=== PATIENT | female | born 1980 | race Caucasian/White ===

== ENCOUNTER 2018-01-31 06:28 | Day surgery (SDC) | payer OTHER ==
[2018-01-31] MEDS ORDERED: SILVER NITRATE TP ONE (07:30)
[2018-01-31] MEDS ORDERED: METHERGINE IM ONE (07:31)
--- NOTE | 2018-01-31 08:15 | Short Stay Summary ---
Short Stay Documentation Date of service: 01/31/18 Narrative H&P: Pt is a 37yo HF LMP 10/24/17 had a pelvic u/s 01/27/18 showing an IUFD @ 11 weeks. She denies vaginal bleeding, and Medical options were discussed. She prefers surgery, so is scheduled for a D&C. - History Principal diagnosis: Incomplete H&P: obtained from office Past Medical History: No medical history Past Surgical History: No surgical history Social history: no significant social history, - Allergies and Medications Current Medications: Allergies No Known Allergies Allergy (Unverified 05/31/17 16:23) Home Medications Medication Instructions Recorded Confirmed Last Taken Type Doxycycline Hyclate [Doxycycline 100 mg PO Q12HR #14 tab 05/31/17 Unknown Rx Hyclate TAB] Ibuprofen [Motrin] 800 mg PO Q8HR PRN #30 tablet 05/31/17 Unknown Rx Methylergonovine Maleate 0.2 mg PO Q4HR #6 tablet 05/31/17 Unknown Rx [Methergine] - Physical exam General appearance: no acute distress Integumentary: no rash HEENT: Atraumatic Lungs: Clear to auscultation Breasts: deferred Heart: Regular rate Female Genitourinary: deferred Rectal Exam: deferred Extremities: No edema Neurological: Normal gait, Normal speech - Brief post op/procedure progress note Date of procedure: 01/31/18 Pre-op diagnosis: 1. IUFD @ 11 weeks 2. Missed Post-op diagnosis: same Procedure: Dilatation and curettage Anesthesia: GETA Findings: A 10-12 week size uterus with large amounts of blood and products of conception Surgeon: LOU ARAMBULA Estimated blood loss: other (200ml) Pathology: list (products of conception) Specimen disposition: to lab Condition: stable - Hospital course Hospital course: Unremarkable - Disposition Condition at discharge: Good Disposition: DC- TO HOME OR SELFCARE - Discharge Diagnoses (1) Missed with demise before 20 completed weeks of gestation Status: Resolved Short Stay Discharge Plan Activity: no restrictions Diet: regular Follow up with: PRIMARY CARE, [Primary Care Provider] - 7 Days LOU ARAMBULA MD [Staff Physician] - 14 Days Prescriptions: Doxycycline [Vibramycin CAP] 100 mg PO Q12HR #14 capsule Ibuprofen [Motrin] 800 mg PO Q8HR PRN #30 tablet PRN Reason: Pain, Moderate (4-6) Methylergonovine [Methergine] 0.2 mg PO Q8HR #6 tablet
[2018-01-31] MEDS ORDERED: TORADOL IV PRN (08:37)
[2018-01-31] MEDS ORDERED: DEMEROL IV PRN (08:37)
[2018-01-31] MEDS ORDERED: ZOFRAN IV PRN (08:37)
[2018-01-31] MEDS ORDERED: NARCAN 0.4 MG/1 ML IV PRN (08:37)
[2018-01-31] MEDS ORDERED: DILAUDID IV PRN ×2 (08:37)
--- NOTE | 2018-01-31 08:39 | Anesthesia Day of Surgery ---
Anesthesia Day of Surgery - Day of Surgery Patient Examined: Yes Patient H&P Reviewed: Yes Patient is NPO: Yes
--- NOTE | 2018-01-31 08:39 | Anesthesia Consultation ---
Anesthesia Consult and Med Hx Date of service: 01/31/18 - Airway Anesthetic Teeth Evaluation: Good ROM Head & Neck: Adequate Mental/Hyoid Distance: Adequate Mallampati Class: Class III - Pulmonary Exam CTA: Yes - Cardiac Exam Cardiac Exam: No Murmur - Pre-Operative Health Status ASA Pre-Surgery Classification: ASA1 Proposed Anesthetic Plan: General - Pre-Anesthesia Comment Pre-Anesthesia Comments: patient tolerates 6 METS. no chest pain or SOB. no N/ V. no cold or flu
[2018-01-31] MEDS ORDERED: NACL BACTERIOSTATIC INFILTRATI ONE (08:43)
[2018-01-31] MEDS ORDERED: ZOFRAN IV NR (09:00)
[2018-01-31] MEDS ORDERED: ANCEF/STERILE WATER 2 GM/20 ML 2 GM/20 ML SYRINGE IV NR (09:00)
[2018-01-31] MEDS: LACTATED RINGERS 1,000 ML IV SCH ×2 (09:13→10:56)
[2018-01-31] MEDS ORDERED: SUBLIMAZE ONE (09:16)
[2018-01-31] MEDS ORDERED: DIPRIVAN 10 MG/ML IV ONE (09:16)
[2018-01-31] MEDS ORDERED: XYLOCAINE MPF 2% ONE (09:17)
[2018-01-31 09:19] LABS: Hemoglobin 12.8 gm/dl (10.1-14.3)
[2018-01-31] MEDS ORDERED: QUELICIN ONE (09:30)
[2018-01-31] MEDS ORDERED: ZOFRAN ONE (09:35)
--- NOTE | 2018-01-31 10:02 | Operative Report ---
Operative Report Operative Report: PREOPERATIVE DIAGNOSIS: 1. Intrauterine demise 2. Missed POSTOPERATIVE DIAGNOSIS: Same OPERATIVE PROCEDURE: Dilatation and curettage. SURGEON: Alexis Woodard MD ANESTHESIA: Gen. endotracheal intubation ANESTHESIOLOGIST: Dr. Calero ESTIMATED BLOOD LOSS: 200 mls FINDINGS: A 10-12 week size uterus with large amounts of blood and products of conception COMPLICATIONS: None COUNTS: Correct x3. PROCEDURE: After the patient was correctly identified as the patient, and after general anesthesia was administered, the patient was prepped and draped in the usual sterile fashion and placed in dorsal lithotomy position. First, the bladder was emptied using a straight catheter. Next, a speculum was placed in the vaginal vault and the anterior lip of the cervix was grasped using a single-tooth tenaculum. The uterus was sounded to 12 cm. The cervical os was sequentially dilated, and a 12 mm vaccurette was used to suction blood and products of conception from the uterine cavity. After all the products of conception were removed, the procedure was considered complete. All instruments were removed from the vagina. The patient tolerated the procedure well and was transferred to the recovery room in stable condition.
[2018-01-31 13:26] VITALS: BP 95/55
--- NOTE | 2018-02-03 06:00 | Post Anesthesia Evaluation ---
- Post Anesthesia Evaluation Patient Participated: Yes Airway Patent: Yes Stable Respiratory Function: Yes Nausea/Vomiting: No Temp > 96.8F: Yes Pain Manageable: Yes Adequeate Hydration: Yes Anesthesia Complications: No Block Receding Appropriately: Not Applicable Patient on Ventilator: No
== END 2018-01-31 11:55 | disposition home or self-care (01) ==
LOC: OR 06:28
PROVIDERS: ATTEND Obstetrics & Gynecology
DX: O02.1 Missed abortion (principal); Z3A.11 11 weeks gestation of pregnancy
CPT/HCPCS: 36415; 59820; 85014; 85018; 86900; 86901; 88305; J0330; J0690; J2405; J2704; J3010; J7120; J2210

== ENCOUNTER 2019-06-30 07:38 | Inpatient (IN) | payer SELFPAY ==
[2019-06-30] MEDS ORDERED: LACTATED RINGERS 500 ML IV ONE (09:30)
[2019-06-30 09:32] LABS: Bacteria,Urine 1+ /HPF (Negative); Bilirubin,Urine NEG (Negative); Blood,Urine NEG (Negative); Color,Urine Yellow (Yellow); Mucus,Urine 1+ /HPF; Protein,Urine <15 mg/dL mg/dL (Negative); Urobilinogen,Urine < 2.0 mg/dL (<2.0)
[2019-06-30 09:33] LABS: WBC,Urine > 182.0 /HPF (0.0-6.0)
[2019-06-30] MEDS ORDERED: AMPICILLIN/NS 2 GM/100 ML 2 GM/100 ML BAG IV ONE (10:23)
[2019-06-30 12:14] LABS: Amphetamine Screen,Urine PRESUMPTIVE NEGATIVE; Cannabinoid Screen,Urine PRESUMPTIVE NEGATIVE; Cocaine Screen,Urine PRESUMPTIVE NEGATIVE; Methadone Screen,Urine PRESUMPTIVE NEGATIVE; Opiate Screen,Urine PRESUMPTIVE NEGATIVE
[2019-06-30 12:29] LABS: Benzodiazepines Screen,Urine PRESUMPTIVE NEGATIVE
--- NOTE | 2019-06-30 13:43 | Ultrasound Report ---
ULTRASOUND BIOPHYSICAL PROFILE INDICATION: kidney. COMPARISON: None available. FINDINGS: heart rate is 149 beats per minute. breathing movement = 2 Gross body movement = 2 tone = 2 Qualitative amniotic fluid volume = 2 IMPRESSION: biophysical profile = 03/12 Signer Name: Alexis Schmidt Jr, MD Signed: 06/30/2019 1:39 PM Workstation Name: [id number]
--- NOTE | 2019-06-30 13:47 | Ultrasound Report ---
OB ULTRASOUND >= 14 WEEKS FETUS INDICATION: complete ob COMPARISON: None FINDINGS: A single gestation intrauterine is present with cephalic presentation. The placenta is ante rior, grade 0 and free of the cervical os. heart tones measure 149 bpm. Amniotic fluid volume is normal with a fluid index of 22.4. The intracranial structures, spine, four-chamber heart, diaphragm, umbilical cord, cord inserti on, stomach, kidneys, and bladder show no sonographic abnormality. Biparietal diameter is 7.5 cm which equals 30 weeks 0 days. Head circumference is 28.6 cm which equals 31 weeks 3 days. Abdominal circumference is 26.0 cm which equals 30 weeks 1 day. Femur length is 5.7 cm which equals 30 weeks 0 days. Overall estimated sonographic age is 30 weeks 3 days. IMPRESSION: Viable as described. Signer Name: Alexis Schmidt Jr, MD Signed: 06/30/2019 1:42 PM Workstation Name: [id number]
--- NOTE | 2019-06-30 13:48 | Ultrasound Report ---
ULTRASOUND RENAL INDICATION / CLINICAL INFORMATION: kidney. COMPARISON: None available. FINDINGS: RIGHT KIDNEY: Length = 11.8 cm. [normal > 9 cm] - Parenchymal Thickness = 1.4 cm. [normal > 1.5 cm] - Echogenicity: Increased - Hydronephrosis: Yes - Cyst or mass: No significant abnormality. - Stones: None seen. LEFT KIDNEY: Length = 11.0 cm. [normal > 9 cm] - Parenchymal Thickness = 2.1 cm. [normal > 1.5 cm] - Echogenicity: Increased - Hydronephrosis: Yes - Cyst or mass: No significant abnormality. - Stones: None seen. URINARY BLADDER: No significant abnormality. FREE FLUID: None. ADDITIONAL FINDINGS: None. IMPRESSION: Bilateral hydronephrosis. Signer Name: Alexis Schmidt Jr, MD Signed: 06/30/2019 1:43 PM Workstation Name: [id number]
[2019-06-30] MEDS: AMPICILLIN/NS 1 GM/50 ML 1 GM/50 ML BAG IV SCH ×3 (14:30→22:08)
[2019-06-30] MEDS ORDERED: MAGNESIUM SULFATE 4 GM/100 ML BAG IV ONE ×2 (20:02→20:52)
[2019-06-30] MEDS: LACTATED RINGERS 1,000 ML IV SCH (20:49)
[2019-06-30] MEDS: BETAMET ACET/BETAMET NA PH 6 MG/ML INJ 5 ML MDV IM SCH (20:59)
[2019-06-30] MEDS ORDERED: MAGNESIUM SULFATE 40GM/1000ML 40 GM/1,000 ML BAG IV SCH (21:00)
[2019-06-30 21:45] LABS: Hematocrit 25.6 % (30.3-42.9); Hemoglobin 8.3 gm/dl (10.1-14.3); Mean Corpuscular HGB Conc 32 % (30-34); Mean Corpuscular Volume 87 fl (79-97); Platelet Count 458 K/mm3 (140-440); Red Blood Count 2.95 M/mm3 (3.65-5.03); Red Cell Distribution Width 15.5 % (13.2-15.2)
[2019-07-01] MEDS: AMPICILLIN/NS 1 GM/50 ML 1 GM/50 ML BAG IV SCH ×5 (02:05→20:29)
[2019-07-01] MEDS: LACTATED RINGERS 1,000 ML IV SCH (10:50)
--- NOTE | 2019-07-01 14:45 | History and Physical Report ---
History of Present Illness Date of examination: 07/01/19 (late entry- pt seen this am.) History of present illness: This patient is a 39-year-old at 29.0 weeks with a history of delivery at 6 months and 8 months per the patient. Patient presents yesterday after noticing some blood when she wiped yesterday morning. No heavy bleeding noted and no blood noted vaginally since. Patient did not have any complaints of any contractions. No leakage of fluid. Good movement. When patient presented and was placed on the monitor she was noted to have contractions around every 2-3 minutes per the chart. Patient notes that she was not feeling those contractions well. Patient started on magnesium sulfate and given betamethasone last night. Since the magnesium was started and the contractions noted on the tocometer have resolved. If still no vaginal bleeding. Patient had a biophysical profile yesterday that was 8 out of 8. Patient also started on antibiotics for suspected urinary tract infection. Past History Past Medical History: no pertinent history (except anemia with ) Past Surgical History: no surgical history Social history: no significant social history - Obstetrical History Expected Date of Delivery: 09/16/19 Actual Gestation: 29 Week(s) 0 Day(s) : 5 Para: 2 Number of Pregnancies: 2 Spontaneous Abortions: 2 Number of Living Children: 2 Medications and Allergies Allergies Allergy/AdvReac Type Severity Reaction Status Date / Time No Known Allergies Allergy Verified 01/31/18 09:11 Home Medications Medication Instructions Recorded Confirmed Last Taken Type Vit-Fe Fumar-FA [ 1 tab PO QDAY 01/31/18 06/30/19 06/29/19 18:30 History Vitamin] Ferrous Sulfate [Iron 325 MG] 325 mg PO BID 06/30/19 06/30/19 06/29/19 15:00 History Active Meds: Active Medications Betamethasone Acet/Betameth SodPhos (Celestone Soluspan) 12 mg IM Q24HR CRISTINA Last Admin: 06/30/19 20:59 Dose: 12 mg Documented by: Lactated Ringer's (Lactated Ringers) 1,000 mls @ 125 mls/hr IV DIRECT CRISTINA Last Admin: 07/01/19 10:50 Dose: 75 mls/hr Documented by: Ampicillin Sodium (Ampicillin/Ns 1 Gm/50 Ml) 1 gm in 50 mls @ 100 mls/hr IV Q4HR CRISTINA; Protocol Last Admin: 07/01/19 11:28 Dose: 100 mls/hr Documented by: Magnesium Sulfate (Magnesium Sulfate 40gm/1000ml) 40 gm in 1,000 mls @ 50 mls/hr IV DIRECT CRISTINA Last Admin: 06/30/19 21:23 Dose: 2 gm/hr, 50 mls/hr Documented by: Review of Systems All systems: negative (except for HPI) - Vital Signs Vital signs: Vital Signs Temp Pulse Resp BP Pulse Ox 97.8 F 103 H 18 112/68 98 06/30/19 08:14 06/30/19 08:14 06/30/19 08:14 06/30/19 08:14 06/30/19 08:14 Temp Pulse Resp BP Pulse Ox 97.6 F 83 12 101/66 100 07/01/19 09:59 07/01/19 14:23 07/01/19 09:59 07/01/19 14:23 06/30/19 10:17 - Physical Exam Abdomen: Positive: normal appearance Genitourinary (Female): Positive: normal external genitalia, normal perenium - Obstetrical FHR comments: 120s Uterine Contraction Monitor Mode: External Cervical Dilatation: 1 Cervical Effacement Percentage: 50 station: -3 Uterine Contraction Pattern: Absent Results Result Diagrams: 06/30/19 21:25 Abnormal lab results 06/30/19 07/01/19 07/01/19 Range/Units 21:25 00:13 05:52 WBC 13.1 H (4.5-11.0) K/mm3 RBC 2.95 L (3.65-5.03) M/mm3 Hgb 8.3 L (10.1-14.3) gm/dl Hct 25.6 L (30.3-42.9) % RDW 15.5 H (13.2-15.2) % Plt Count 458 H (140-440) K/mm3 Magnesium 4.60 H 6.10 H (1.7-2.3) mg/dL 07/01/19 Range/Units 12:12 WBC (4.5-11.0) K/mm3 RBC (3.65-5.03) M/mm3 Hgb (10.1-14.3) gm/dl Hct (30.3-42.9) % RDW (13.2-15.2) % Plt Count (140-440) K/mm3 Magnesium 6.30 H (1.7-2.3) mg/dL All other labs normal. fibronectin is negative from today Assessment and Plan - Patient Problems (1) Premature dilation of cervix during , antepartum Current Visit: Yes Status: Acute Plan to address problem: Patient with premature dilation of the cervix. Patient also with history of delivery 2. As a result will keep the patient until at least the second steroid injection is given tonight. In light of her negative fibronectin will also likely stop the magnesium soon just to see how she does without it and see if the contractions that were noted on her admission return. Plan discussed with the patient and her earlier today and they agree with the plan. translated for the patient. Pelvic rest advised to the patient for the rest of as well.
[2019-07-01] MEDS: BETAMET ACET/BETAMET NA PH 6 MG/ML INJ 5 ML MDV IM SCH (21:17)
[2019-07-02] MEDS: AMPICILLIN/NS 1 GM/50 ML 1 GM/50 ML BAG IV SCH ×2 (00:26→04:44)
--- NOTE | 2019-07-02 06:53 | Progress Note ---
Assessment and Plan - Patient Problems (1) Premature dilation of cervix during , antepartum Current Visit: Yes Status: Acute Plan to address problem: Pt is stable with an unchanged cervix (actually felt thicker than yesterday), no ctxs and no more VB. PT has received 2nd Betamethasone. PT had negative FFN yesterday. Will send pt home. PT got IV Abx for 2 days for UTI so no more Abx needed. Pelvic rest advised to the pt as well as labor precautions. RTO next week. All questions answered. Plan d/w MFM yesterday and he agreed with the plan. Subjective - Subjective Date of service: 07/02/19 Interval history: . Patient reports: movement normal, no new complaints (Mag stopped late afternoon yesterday. No complaints of ctxs since and no significant ctxs on toco. Betamethasone #2 given last night.), no loss of fluid, no vaginal bleeding, no contractions Objective - Vital Signs Vital Signs: Vital Signs - 12hr 07/01/19 07/01/19 07/01/19 19:24 20:08 20:23 Temperature 96.3 F L Pulse Rate 93 H 94 H 93 H Respiratory 18 Rate Blood Pressure 107/65 109/66 113/69 Blood Pressure 109/66 [Left] 07/01/19 07/01/19 07/01/19 21:23 22:23 23:24 Temperature 95.9 F L Pulse Rate 100 H 89 93 H Respiratory 18 Rate Blood Pressure 124/77 102/63 103/72 Blood Pressure 103/72 [Left] 07/02/19 07/02/19 07/02/19 00:28 01:23 02:55 Temperature 96.4 F L Pulse Rate 89 84 89 Respiratory 18 Rate Blood Pressure 100/64 102/59 Blood Pressure 97/59 [Left] 07/02/19 07/02/19 07/02/19 02:56 03:23 04:23 Temperature Pulse Rate 89 91 H 89 Respiratory Rate Blood Pressure 97/59 98/57 99/56 Blood Pressure [Left] 07/02/19 07/02/19 05:23 06:23 Temperature Pulse Rate 85 86 Respiratory Rate Blood Pressure 99/60 99/62 Blood Pressure [Left] - Exam FHR comments: 120s Cervical Dilatation: 1 Cervical Effacement Percentage: 20 station: high Uterine Contraction Pattern: Absent (cervix felt thicker today than yesterday) - Labs Labs: Abnormal Labs 06/30/19 06/30/19 07/01/19 08:52 21:25 00:13 WBC 13.1 H RBC 2.95 L Hgb 8.3 L Hct 25.6 L RDW 15.5 H Plt Count 458 H Magnesium 4.60 H Urine WBC (Auto) > 182.0 H 07/01/19 07/01/19 07/01/19 05:52 12:12 18:12 WBC RBC Hgb Hct RDW Plt Count Magnesium 6.10 H 6.30 H 6.10 H Urine WBC (Auto) 07/02/19 00:21 WBC RBC Hgb Hct RDW Plt Count Magnesium 3.00 H Urine WBC (Auto) Laboratory Results - last 24 hr 07/01/19 07/01/19 07/01/19 05:52 09:25 12:12 Magnesium 6.10 H 6.30 H Fibronectin Negative 07/01/19 07/02/19 18:12 00:21 Magnesium 6.10 H 3.00 H Fibronectin
[2019-07-02 07:04] VITALS: BP 109/69
== END 2019-07-02 07:28 | disposition home or self-care (01) | DRG 833 ==
LOC: TRG 07:38 → LD 07:38 → TRG 07:39
PROVIDERS: ADMIT Obstetrics & Gynecology; ATTEND Obstetrics & Gynecology
DX: O34.33 Maternal care for cervical incompetence, third trimester (principal); O99.013 Anemia complicating pregnancy, third trimester; D64.9 Anemia, unspecified; Z3A.29 29 weeks gestation of pregnancy
CPT/HCPCS: 36415; 76770; 76805; 76819; 80307; 81001; 82731; 83735; 85027; 86850; 86900; 86901; 87076; 87086; 87186; 96360; 96361; G0378; J0290; J0702; J3475; J7120

== ENCOUNTER 2019-08-31 21:56 | Inpatient (IN) | payer SELFPAY ==
[2019-08-31] MEDS ORDERED: TERBUTALINE 1 MG/1 ML INJ SUB-Q PRN (23:22)
[2019-08-31] MEDS ORDERED: ePHEDrine SULFATE 50 MG/1 ML INJ IV PRN (23:22)
[2019-08-31] MEDS ORDERED: TERBUTALINE 1 MG/1 ML INJ IVP PRN (23:22)
[2019-08-31] MEDS ORDERED: MINERAL OIL 30 ML ORAL LIQD PO PRN (23:22)
[2019-08-31] MEDS ORDERED: LIDOCAINE (2%) 20 MG/1 ML VIAL 20 ML MDV INFILTRATI ONE (23:22)
[2019-08-31] MEDS ORDERED: LACTATED RINGERS 1,000 ML IV SCH (23:45)
[2019-08-31] MEDS ORDERED: OXYTOCIN 20 UNIT/1000ML DRIP 20 UNITS/1,000 ML BAG IV SCH (23:45)
[2019-09-01 00:06] LABS: Hematocrit 31.4 % (30.3-42.9); Hemoglobin 10.9 gm/dl (10.1-14.3); Mean Corpuscular HGB Conc 35 % (30-34); Mean Corpuscular Volume 88 fl (79-97); Platelet Count 307 K/mm3 (140-440); Red Blood Count 3.58 M/mm3 (3.65-5.03); Red Cell Distribution Width 19.3 % (13.2-15.2)
[2019-09-01] MEDS: fentaNYL 100 MCG/2 ML INJ IV PRN ×2 (00:45→01:53)
--- NOTE | 2019-09-01 00:54 | History and Physical Report ---
History of Present Illness Date of examination: 09/01/19 Date of admission: 09/01/19 00:17 Chief complaint: Lower abdominal and back pain History of present illness: 39yo G 5 P 1 1 2 2 @ 37 weeks 6 days here with c/o contractions and back pain that started on 08/31/19 @ 7-8pm. She reports +FMs but denies VB or LOF. She is a [facility] patient who initiated care at 7 weeks gestation. records are available and reviewed. Her course is significant for h/o delivery, anemia and AMA. LABS: AB pos, Antibody Screen neg, RI, RPR NR, HBsAg neg, HIV neg, MSAFP neg, Diabetes Screen 123, GC/CT neg, GBS neg. Past History Past Medical History: no pertinent history Past Surgical History: no surgical history Family/Genetic History: none Social history: single, lives with family, full code. denies: smoking, alcohol abuse, prescription drug abuse, IV drug use - Obstetrical History Expected Date of Delivery: 09/16/19 Actual Gestation: 37 Week(s) 6 Day(s) : 5 Para: 2 Hx # Term Pregnancies: 1 Number of Pregnancies: 1 Spontaneous Abortions: 2 Induced : 0 Number of Living Children: 2 #1 Gender: Male year: 2[birth year] Birthweight: 907.185 g (2 lbs) Method of Delivery: Vaginal Gestational age at delivery: 24 #2 Infant Gender: Male year: 2,[birth year] Birthweight: 3.487 kg Method of Delivery: Vaginal Gestational age at delivery: 40 Complications: none Medications and Allergies Allergies Allergy/AdvReac Type Severity Reaction Status Date / Time No Known Allergies Allergy Verified 01/31/18 09:11 Home Medications Medication Instructions Recorded Confirmed Last Taken Type Vit-Fe Fumar-FA [ 1 tab PO QDAY 01/31/18 08/31/19 08/31/19 History Vitamin] Ferrous Sulfate [Iron 325 MG] 325 mg PO BID 06/30/19 08/31/19 08/31/19 History Active Meds: Active Medications Ephedrine Sulfate (Ephedrine Sulfate) 10 mg IV Q2M PRN PRN Reason: Hypotension Fentanyl (Sublimaze) 100 mcg IV Q2H PRN PRN Reason: Labor Pain Last Admin: 09/01/19 00:45 Dose: 100 mcg Documented by: Oxytocin/Sodium Chloride (Pitocin/Ns 20 Unit/1000ml Drip) 20 units in 1,000 mls @ 125 mls/hr IV DIRECT CRISTINA Lactated Ringer's (Lactated Ringers) 1,000 mls @ 125 mls/hr IV DIRECT CRISTINA Last Admin: 09/01/19 00:46 Dose: 125 mls/hr Documented by: Oxytocin/Sodium Chloride (Pitocin/Ns 30 Unit/500ml) 30 units in 500 mls @ 0 mls/hr IV TITR CRISTINA; Protocol Mineral Oil (Mineral Oil) 30 ml PO QHS PRN PRN Reason: Constipation Terbutaline Sulfate (Brethine) 0.25 mg SUB-Q ONCE PRN PRN Reason: Hyperstimulation/Hypertonicity Terbutaline Sulfate (Brethine) 0.25 mg IVP ONCE PRN PRN Reason: Hyperstimulation/Hypertonicity Review of Systems All systems: negative - Vital Signs Vital signs: Vital Signs Pulse BP 103 H 123/76 08/31/19 23:03 08/31/19 23:03 Temp Pulse Resp BP Pulse Ox 98.5 F 85 18 130/79 09/01/19 00:22 09/01/19 00:22 09/01/19 00:45 09/01/19 00:22 - Obstetrical FHR: auscultation normal, category 1 FHR comments: baseline 140, moderate variability, 15x15 accels, no decels Uterine Contraction Monitor Mode: External Cervical Dilatation: 6 Cervical Effacement Percentage: 80 station: -1 Uterine Contraction Pattern: Irregular Results Result Diagrams: 08/31/19 23:31 Abnormal lab results 08/31/19 Range/Units 23:31 WBC 14.0 H (4.5-11.0) K/mm3 RBC 3.58 L (3.65-5.03) M/mm3 MCHC 35 H (30-34) % RDW 19.3 H (13.2-15.2) % All other labs normal. Assessment and Plan - Patient Problems (1) 37 weeks gestation of Current Visit: Yes Status: Acute (2) Active labor at term Current Visit: Yes Status: Acute Plan to address problem: Admit to L&D with routine labor orders AROM @ 0029. Clear fluid. Moderate amount Oxytocin for labor augmentation, if indicated Anticipate vaginal delivery (3) AMA (advanced maternal age) multigravida 35+ Current Visit: Yes Status: Acute Qualifiers: Trimester: third trimester Qualified Code(s): O09.523 - Supervision of elderly multigravida, third trimester
[2019-09-01] MEDS ORDERED: OXYTOCIN DRIP 30 UNITS/500 ML BAG IV SCH (01:30)
[2019-09-01] MEDS ORDERED: PROMETHAZINE 25 MG TAB PO PRN (03:16)
[2019-09-01] MEDS ORDERED: MAGNESIUM HYDROXIDE (MOM) ORAL LIQD UDC PO PRN (03:16)
[2019-09-01] MEDS ORDERED: LANOLIN/ZINC/DIMETHICONE (LANSINOH) 7 GM TP PRN (03:16)
[2019-09-01] MEDS ORDERED: ONDANSETRON 4 MG/2 ML INJ IV PRN (03:16)
[2019-09-01] MEDS ORDERED: diphenhydrAMINE 25 MG CAP PO PRN (03:16)
[2019-09-01] MEDS ORDERED: ACETAMINOPHEN 325 MG TAB PO PRN (03:16)
[2019-09-01] MEDS ORDERED: WITCH HAZEL/ GLYCERIN PAD TP PRN (03:16)
[2019-09-01] MEDS ORDERED: PROMETHAZINE 25 MG RECT SUPP PR PRN (03:16)
--- NOTE | 2019-09-01 03:16 | Procedure Note ---
OB Delivery Note - Delivery Date of Delivery: 09/01/19 (0259) Surgeon: SHARRON NORRIS (CN) Estimated blood loss: 100cc - Vaginal Delivery presentation: vertex Delivery position: OA Intrapartum events: none Delivery induction: none Delivery augmentation: rupture of membranes (AROM @ 0029), pitocin Delivery monitor: external FHT, external uterine Route of delivery: (0259) Delivery placenta: spontaneous (0306) Delivery cord: nuchal cord (CAN x1; reduced after delivery of baby), 3 umbilical vessels Delivery laceration: 1st degree (perineal. Hemostatic and left unrepaired) Anesthesia: intravenous Delivery comments: of a vigorous term 7 lbs 3 oz female on 09/01/19 @ 02:59. Baby placed [id number] on maternal abdomen, dried & bulb-suctioned by RN. After 3 mins, umbilical cord double-clamped by me and cut by FOB. Spontaneous delivery of placenta, [place]-side presenting @ 0306. Small lochia present. Fundal massage and IV Pitocin bolus initiated. Fundus F/ML/U. Placenta intact; was discarded. 1st degree perineal laceration noted and hemostatic so left unrepaired. Mom and baby in stable condition. - A at 1 minute: 7 at 5 minutes: 8 Gender: Female (7 lbs 3 oz (3267 gm); 19 in)
[2019-09-01] MEDS ORDERED: IBUPROFEN 600 MG TAB PO ONE (03:18)
[2019-09-01] MEDS ORDERED: AMMONIA INHALANT IH ONE ×2 (06:09→06:37)
[2019-09-01 07:31] LABS: Hematocrit 30.3 % (30.3-42.9); Hemoglobin 9.9 gm/dl (10.1-14.3)
[2019-09-01] MEDS: IBUPROFEN 600 MG TAB PO SCH ×3 (10:01→23:07)
[2019-09-01] MEDS: PRENATAL VIT27-FE FUMARATE-FOLIC ACID VIT TAB PO SCH (10:01)
[2019-09-02] MEDS: HYDROcodone/ACETAMINOPHEN 5-325 MG TAB PO PRN ×2 (03:45→17:06)
[2019-09-02] MEDS: IBUPROFEN 600 MG TAB PO SCH ×2 (05:42→12:16)
[2019-09-02 07:04] LABS: Hematocrit 25.3 % (30.3-42.9); Hemoglobin 8.5 gm/dl (10.1-14.3)
--- NOTE | 2019-09-02 11:00 | Progress Note ---
Assessment and Plan A: PP Day I Asymptomatic Anemia P: Follow Routine orders Has script for FeSO4; advised to take BID @ home D/C home today per Patient Request RTO in 6 Weeks Subjective - Subjective Date of service: 09/02/19 Patient reports: appetite normal, voiding normally, pain well controlled, flatus, bowel movement, ambulating normally [place]: doing well, bottle feeding Objective - Vital Signs Latest vital signs: Vital Signs Temp Pulse Resp BP BP Pulse Ox 09/02/19 07:25 97.9 F 73 16 106/74 96 09/02/19 02:57 98.0 F 72 16 111/72 97 09/01/19 17:00 97.9 F 98 H 14 114/63 97 09/01/19 12:36 97.9 F 89 18 109/50 98 09/01/19 12:29 98.0 F 70 18 105/58 98 09/01/19 11:35 98.6 F 82 12 98/63 97 Intake and Output 09/01/19 09/02/19 09/02/19 22:59 06:59 14:59 Intake Total 240 180 120 Balance 240 180 120 Intake: Oral 120 Intake, Free Water 240 180 Other: Total, Intake Amount 120 # Voids Void 2 1 1 - Exam Breasts: Present: normal Cardiovascular: Present: Regular rate Lungs: Present: Clear to auscultation, Normal air movement Abdomen: Present: normal appearance, soft, normal bowel sounds Uterus: Present: normal, firm, fundal height below umbilicus Extremities: Present: normal - Labs Labs: Abnormal lab results 09/02/19 Range/Units 06:51 Hgb 8.5 L (10.1-14.3) gm/dl Hct 25.3 L (30.3-42.9) %
--- NOTE | 2019-09-02 11:03 | Discharge Summary ---
Providers - Providers Date of Admission: 09/01/19 00:17 Date of discharge: 09/02/19 Attending physician: TONY MCPHERSON Primary care physician: TONY MCPHERSON Hospitalization Reason for admission: active labor Delivery: Episiotomy: none Laceration: 1st degree Other procedures: none complications: none Discharge diagnosis: IUP at term delivered [place] baby: female Condition at discharge: Good Disposition: DC-01 TO HOME OR SELFCARE Plan - Provider Discharge Summary Activity: routine, no sex for 6 weeks, no heavy lifting 4 weeks, no strenuous exercise Diet: routine Instructions: routine Additional instructions: [] Smoking cessation referral if applicable(refer to patient education folder for contact #) [] Refer to [facility]'s [facility] Booklet Call your doctor immediately for: * Fever > 100.5 * Heavy vaginal bleeding ( >1 pad per hour) * Severe persistent headache * Shortness of breath * Reddened, hot, painful area to leg or breast * Drainage or odor from incision. * Keep incision clean and dry at all times and follow doctor's instructions regarding bathing/showering - Follow up plan Follow up: TONY MCPHERSON MD [Primary Care Provider] - 6 Weeks
[2019-09-02] MEDS: PRENATAL VIT27-FE FUMARATE-FOLIC ACID VIT TAB PO SCH (12:16)
[2019-09-02 17:56] VITALS: BP 123/78
== END 2019-09-02 17:30 | disposition home or self-care (01) | DRG 807 ==
LOC: TRG 21:56 → LD 09-01 00:17 → OB 09-01 04:45
PROVIDERS: ADMIT Obstetrics & Gynecology; ATTEND Obstetrics & Gynecology
PROC: 10E0XZZ Delivery of Products of Conception, External Approach (ICD-10-PCS; principal; 2019-09-01)
PROC: 10907ZC Drainage of Amniotic Fluid, Therapeutic from Products of Conception, Via Natural or Artificial Opening (ICD-10-PCS; 2019-09-01)
DX: O69.1XX0 Labor and delivery complicated by cord around neck, with compression, not applicable or unspecified (principal); Z37.0 Single live birth; O70.0 First degree perineal laceration during delivery; O99.02 Anemia complicating childbirth; Z3A.37 37 weeks gestation of pregnancy; Z37.9 Outcome of delivery, unspecified
CPT/HCPCS: 36415; 85014; 85018; 85027; 86592; 86850; 86900; 86901; G0378; J2590; J3010; J7120